=== PATIENT | male | born 1990 | race Caucasian/White ===

== ENCOUNTER 2022-09-26 06:30 | Inpatient (IN) | payer OTHER ==
[~2022-09-26] VITALS: Ht 188 cm; Wt 101.2 kg
[2022-09-26 06:35] VITALS: BP 130/86
--- NOTE | 2022-09-26 06:38 | NUR ---
TO BED AMBULATORY
[2022-09-26] MEDS ORDERED: MORPHINE SULFATE 4 MG/ML SYR IVP ONE (07:15)
[2022-09-26] MEDS ORDERED: ONDANSETRON 4 MG/2 ML VIAL IVP ONE (07:15)
[2022-09-26] MEDS ORDERED: NACL 0.9% 1,000 ML IV ONE ×2 (07:15→11:55)
[2022-09-26 07:56] LABS: ALBUMIN 4.3 g/dL (3.4-5.0); ANION GAP 13.4 (8-16); CREATININE 0.9 mg/dL (0.6-1.3); POTASSIUM 4.4 mmol/L (3.5-5.1); TOTAL BILIRUBIN 0.8 mg/dL (0.0-1.0)
[2022-09-26 08:03] LABS: BASOPHILS % (AUTO) 0.2 % (0.0-2.0); HEMATOCRIT 45.7 % (36-52); HEMOGLOBIN 15.4 g/dL (12.0-18.0); LYMPHOCYTES # (AUTO) 0.8 K/uL (2.0-11.5); LYMPHOCYTES % (AUTO) 7.2 % (20.5-51.1); MEAN CORPUSCULAR HEMOGLOBIN 31 pg (27-31); MEAN CORPUSCULAR HGB CONC 34 g/dL (33-37); MEAN CORPUSCULAR VOLUME 90.6 fL (80-94); MONOCYTES # (AUTO) 0.6 K/uL (0.8-1.0); MONOCYTES % (AUTO) 5.6 % (1.7-9.3); NEUTROPHILS # (AUTO) 9.7 K/uL (1.8-7.7); PLATELET COUNT (AUTO) 219 K/uL (140-450); RED BLOOD CELL COUNT(AUTO) 5.05 MIL/uL (4.20-6.10); RED CELL DISTRIBUTION WIDTH 12.1 % (11.6-13.7); WHITE BLOOD COUNT (AUTO) 11.1 K/uL (4.8-10.8)
[2022-09-26] MEDS ORDERED: MORPHINE SULFATE 4 MG/ML SYR IVP PRN (12:20)
[2022-09-26] MEDS ORDERED: HYDROcodone/APAP 5/325 MG 1 TAB TAB PO PRN (12:20)
[2022-09-26] MEDS ORDERED: POTASSIUM CHLORIDE 10 MEQ TABER PO PRN (12:20)
[2022-09-26] MEDS ORDERED: MAGNESIUM OXIDE 400 MG TAB PO PRN (12:20)
[2022-09-26] MEDS ORDERED: ONDANSETRON 4 MG/2 ML VIAL IVP PRN (12:20)
[2022-09-26] MEDS ORDERED: ACETAMINOPHEN 325 MG TAB PO PRN (12:20)
[2022-09-26 12:32] LABS: APPEARANCE,URINE CLEAR (CLEAR); BILIRUBIN,URINE NEGATIVE (NEGATIVE); BLOOD, URINE TRACE-I (NEGATIVE); COLOR,URINE YELLOW (YELLOW); LEUKOCYTE ESTERASE ,URINE NEGATIVE (NEGATIVE); NITRITE, URINE NEGATIVE (NEGATIVE); UGLUCOSE NEGATIVE (NEGATIVE)
--- NOTE | 2022-09-26 12:32 | NUR ---
CHARBEL SWAB COLLECTED AND HANDED TO [employer].
[2022-09-26 12:40] LABS: RBC,URINE NONE SEEN /HPF (0-5); WBC,URINE 0-5 /HPF (0-5)
[2022-09-26] MEDS ORDERED: OMEP20EC11 PO (13:22)
[2022-09-26] MEDS ORDERED: cefTRIAXone 1,000 MG VIAL ONE (13:23)
[2022-09-26] MEDS: NACL 0.9% 1,000 ML IV SCH (13:35)
--- NOTE | 2022-09-26 14:30 | NUR ---
DR. GUTIERREZ AT BEDSIDE.
--- NOTE | 2022-09-26 14:57 | NUR ---
Patient will be admitted to care of DR GUTIERREZ. Admited to Med/Surg. Will go to room 111B. Belongings list completed. Report to HERB DEVLIN.
--- NOTE | 2022-09-26 15:16 | NUR ---
MILD FEVER 101.2 TEMPORAL SCAN PER HERB DEVLIN. GIVEN NEEDED TYLENOL AND COOLING MEASURES.
--- NOTE | 2022-09-26 15:20 | NUR ---
RECEIVE REPORT FORM ER NURSE THAT PATIENT COME FROM HOME WITH ABDOMINAL PAIN WITH NAUSEA AND FEVER. ADMISSION VITAL (T-P-R: 101.2-117-20; BP:141/93, O2 SAT:98% WITH NO ACUTE PAIN), TYLENOL GIVEN FOR FEVER. PATIENT DIAGNOSIS WITH ABDOMINAL PAIN @R. UPPER QUADRANT THAT RADIATION TO BACK. ABDOMEN/PELVIS CT INDICT THAT Abdomen: 1. Normal appendix. 2. Small right lower quadrant mesenteric lymph nodes may represent mesenteric adenitis. 3. No bowel obstruction. 4. Bilateral staghorn calculi. There is no obstructive uropathy. 5. Subcentimeter hypodense lesion in the right hepatic lobe, too small to accurately characterize. Pelvis: 1. Phleboliths. 2. Tiny left inguinal hernia/canal containing fat. PATIENT HAS NO SIGNIFICANT MEDICAL HX BUT ALLERGY TO LEVOFLOXACIN, FULL CODE, AMBULATORY. PIV AT LAC 20G INFUSING NS @80ML/HR; FIRST DOSE ROCEPHIN GIVEN IN ER. NO ACUTE SKIN ISSUE. TACHYCARDIA, ON ROOM AIR. WILL CONTINUE TO MONITOR.
[2022-09-26 16:00] VITALS: BP 135/97
--- NOTE | 2022-09-26 16:16 | NUR ---
[facility] SWAB COLLECTION FROM BILATERAL NARES OF PATIENT AND PUT IN DELIVERY BOX FOR LABORATORY.
--- NOTE | 2022-09-26 18:14 | NUR ---
PATIENT PAIN IS "MUCH BETTER " PER HIS REPORT. LAI BRIZUELA PASSING DINNER TRAY.
--- NOTE | 2022-09-26 19:06 | NUR ---
HANDOFF WITH HERB ANTON.
--- NOTE | 2022-09-26 19:30 | NUR ---
RECEIVED REPORT FROM DAY SHIFT NURSE GEOFFREY FOR CONTINUITY OF CARE. PATIENT IS A&O X4. PATIENT IS ON ROOM AIR, BREATHING IS NORMAL WITH SYMMETRICAL RISE AND FALL OF CHEST. PATIENT'S IV IS A 20G LAC, RUNNING NS 80. PATIENT IS AWAKE, SITTING IN HIGH-FOWLERS POSITION, VISITING WITH FATHER (DIEGO VALDEZ, ). BED IS IN LOWEST POSITION, WHEELS LOCKED, CALL LIGHT IN PLACE. WILL CONTINUE TO OBSERVE PATIENT.
[2022-09-26 20:00] VITALS: BP 134/87
--- NOTE | 2022-09-26 21:40 | NUR ---
PATIENT REQUESTED TO HAVE HIS IV TAKEN OFF SO HE CAN USE THE BATHROOM. DISCONNECTED PATIENT FROM IV AND PATIENT AMBULATED TO THE BATHROOM WITHOUT DIFFICULTY. PATIENT AMBULATED BACK TO HIS BED INDEPENDENTLY WITHOUT DIFFICULTY WHEN HE WAS FINISHED. PATIENT STATED THAT HE HAD URINATED AND IT WAS NOT PAINFUL. HE ALSO STATED THAT IT WAS CLEAR YELLOW WITH NO SIGN OF BLOOD. I RECONNECTED PATIENT TO IV. OBTAINED PATIENT'S 2100 HEPARIN MEDICATION. ADMINISTERED HEPARIN, PATIENT TOLERATED WELL. PATIENT'S BREATHING IS NORMAL WITH SYMMETRICAL RISE AND FALL OF CHEST. WILL CONTINUE TO OBSERVE PATIENT.
--- NOTE | 2022-09-27 | NUR ---
LOOKED IN ON PATIENT. PATIENT WAS SLEEPING LYING IN HIGH-FOWLERS POSITION. BREATHING WAS NORMAL WITH SYMMETRICAL RISE AND FALL OF CHEST. WILL CONTINUE TO OBSERVE PATIENT.
[2022-09-27] MEDS: NACL 0.9% 1,000 ML IV SCH ×2 (01:47→13:18)
--- NOTE | 2022-09-27 01:52 | NUR ---
WENT INTO PATIENT'S ROOM AND HUNG NEW IV BAG. IV IS RUNNING NS AT 80. PATIENT WAS SLEEPING IN HIGH-FOWLERS POSITION. BREATHING WAS NORMAL WITH SYMMETRICAL RISE AND FALL OF CHEST. WILL CONTINUE TO OBSERVE PATIENT.
[2022-09-27 04:00] VITALS: BP 135/89
--- NOTE | 2022-09-27 04:30 | NUR ---
LOOKED IN ON PATIENT. PATIENT WAS SLEEPING, SITTING IN HIGH-FOWLERS POSITION. BREATHING WAS NORMAL WITH SYMMETRICAL RISE AND FALL OF CHEST. IV IS RUNNING NS AT 80. WILL CONTINUE TO OBSERVE PATIENT.
--- NOTE | 2022-09-27 06:00 | NUR ---
LOOKED IN ON PATIENT. PATIENT WAS AWAKE SITTING UP IN HIGH-FOWLERS POSITION. PATIENT GREETED ME CHEERFULLY BY SAYING GOOD MORNING. I ASKED PATIENT HOW HIS NIGHT WAS, HE SAID IT WAS GOOD. PATIENT HAD A URINAL TO THE SIDE OF THE BED ON HIS NIGHT STAND. EMPTIED 400 ML FROM URINAL. URINE WAS DARK MATT, BUT NO REDNESS. PATIENT'S BREATHING WAS NORMAL WITH SYMMETRICAL RISE AND FALL OF CHEST. WILL CONTINUE TO OBSERVE PATIENT.
[2022-09-27 06:31] LABS: BASOPHILS % (AUTO) 0.5 % (0.0-2.0); EOSINOPHILS % (AUTO) 0.3 % (0.0-4.0); HEMATOCRIT 43.2 % (36-52); HEMOGLOBIN 14.5 g/dL (12.0-18.0); LYMPHOCYTES # (AUTO) 1.6 K/uL (2.0-11.5); MEAN CORPUSCULAR HEMOGLOBIN 31 pg (27-31); MEAN CORPUSCULAR HGB CONC 34 g/dL (33-37); MEAN CORPUSCULAR VOLUME 91.5 fL (80-94); MONOCYTES # (AUTO) 1.2 K/uL (0.8-1.0); MONOCYTES % (AUTO) 14.6 % (1.7-9.3); NEUTROPHILS # (AUTO) 5.2 K/uL (1.8-7.7); NEUTROPHILS % (AUTO) 64.6 % (42.2-75.2); PLATELET COUNT (AUTO) 199 K/uL (140-450); RED BLOOD CELL COUNT(AUTO) 4.72 MIL/uL (4.20-6.10); RED CELL DISTRIBUTION WIDTH 12.6 % (11.6-13.7)
--- NOTE | 2022-09-27 07:05 | NUR ---
ASSUMED CONTINUITY OF CARE. NO SIGNS AND SYMPTOMS OF ACUTE DISTRESS NOTED. EXPLAINED DIAGNOSIS, PLAN OF CARE, PAIN MANAGEMENT TEACHING, USE OF CALL LIGHT/BED/TV/BATHROOM. VERBALIZED UNDERSTANDING. CALL LIGHT WITHIN REACH.
--- NOTE | 2022-09-27 07:30 | NUR ---
ENDORSED TO DAY SHIFT NURSE OSORIO FOR CONTINUITY OF CARE. PATIENT IS STABLE.
[2022-09-27 07:58] LABS: ALBUMIN 3.6 g/dL (3.4-5.0); CARBON DIOXIDE 26.9 mmol/L (21-32); CREATININE 0.8 mg/dL (0.6-1.3); MAGNESIUM 1.8 mg/dL (1.8-2.4); PHOSPHORUS 3.3 mg/dL (2.5-4.9); POTASSIUM 4.9 mmol/L (3.5-5.1); TOTAL BILIRUBIN 0.6 mg/dL (0.0-1.0)
[2022-09-27 08:00] VITALS: BP 140/83
--- NOTE | 2022-09-27 10:47 | NUR ---
WENT BATHROOM WITHOUT ASSISTANCE. TOLERATED WELL. NO C/O PAIN.
--- NOTE | 2022-09-27 11:06 | NUR ---
PATIENT HAS BEEN SCREENED AND CATEGORIZED MODERATE NUTRITION RISK. PATIENT WILL BE SEEN WITHIN 3-5 DAYS OF ADMISSION. 09/29/2212/19/[address] REVIEWED BY [address]
--- NOTE | 2022-09-27 15:57 | NUR ---
DC PLANNING JAUN MET W/ PT AT BEDSIDE TO COMPLETE ASSESSMENT. PT RESIDES IN A TWO STORY HOME WITH HIS PARENTS AT THE ADDRESS LISTED ON FILE. PT IDENTIFIED LOUIS VALDEZ, MOM, AND DIEGO VALDEZ, FATHER, EMERGENCY CONTACTS. PT DENIES AD IN PLACE AND DECLINED AD OFFERED BY SW. PT REPORTS VISITING WITH PCP NEEDED, LAST VISIT; SEP 04. PT DENIES TAKING MEDICATIONS AT THIS TIME. PT REPORTS RECEIVING MEDICATION FROM [facility] CHANG ON [address] IN [place], WHEN NEEDED. PT REPORTS BEING INDEPENDENT IN ALL ACTIVITIES AND DENIES USE OF DME. PT DENIES MH/[place] HX. PT DENIES HX OF HH, DIABETES, SNF PLACEMENT. PT REPORTS ADEQUATE FOOD IN THE HOME AND REPORTS THAT HE WORKS [employer]. PT REPORTS DC PLAN IS TO RETURN HOME W/ PARENTS PROVIDING TRANSPORTATION, WHEN MEDICALLY STABLE. Addendum: 09/27/22 at 1558 by Sherie NASCIMENTO Amended: Links added.
[2022-09-27 16:00] VITALS: BP 140/87
--- NOTE | 2022-09-27 19:05 | NUR ---
BEDSIDE REPORT TO NIGHTSHIFT NURSE. IN STABLE CONDITION. IVF INFUSING WELL.
--- NOTE | 2022-09-27 19:10 | NUR ---
RECEIVED REPORT FROM DAY NURSE. PATIENT LYING ON THE BED, IS AWAKE, ALERT AND ORIENTED X4, DENIES PAIN, FAMILY AT BEDSIDE. CALL LIGHT WITHIN REACH.
--- NOTE | 2022-09-27 20:10 | NUR ---
VITALS T 98.6, P 87, BP 135/91, RESP 18 AND O2 SATS 97% ON ROOM AIR.
--- NOTE | 2022-09-27 20:20 | NUR ---
DUE MEDICATION GIVEN ORDERED, NO ADVERSE REACTIONS NOTED, WILL CONTINUE TO MONITOR THE PATIENT.
--- NOTE | 2022-09-27 23:10 | NUR ---
PATIENT IS ASLEEP, NO SIGNS OF PAIN/DISCOMFORT NOTED, NO SIGNS OF DISTRESS NOTED. CALL LIGHT WITHIN REACH. SAFETY PRECAUTIONS IN PLACE.
--- NOTE | 2022-09-28 00:04 | NUR ---
CHECK ON PATIENT, PATIENT JUST CAME OUT OF THE RESTROOM, GAIT IS STEADY, PT IS WEARING NON SKID SOCKS. PATIENT STATED " YELLOW COLOR URINE AND NO PAIN UPON URINATION" WHEN ASKED IF HE HAS ANY PAIN UPON URINATION. BED IN LOW AND LOCKED POSITION, CALL LIGHT WITHIN REACH. WILL CONTINUE TO MONITOR THE PATIENT.
[2022-09-28] MEDS: NACL 0.9% 1,000 ML IV SCH ×2 (01:16→14:20)
[2022-09-28 04:00] VITALS: BP 127/83
--- NOTE | 2022-09-28 04:20 | NUR ---
VITALS T 97.8, P 96, BP 127/83, RESP 20 AND O2 SATS 98% ON ROOM AIR. PATIENT DENIES PAIN/DISCOMFORT UPON ASSESSMENT. WILL CONTINUE TO MONITOR THE PATIENT.
[2022-09-28 06:58] LABS: BASOPHILS % (AUTO) 0.8 % (0.0-2.0); EOSINOPHILS # (AUTO) 0.1 K/uL (0-0.4); HEMATOCRIT 41.4 % (36-52); HEMOGLOBIN 14.1 g/dL (12.0-18.0); LYMPHOCYTES % (AUTO) 37.3 % (20.5-51.1); MEAN CORPUSCULAR HEMOGLOBIN 31 pg (27-31); MEAN CORPUSCULAR HGB CONC 34 g/dL (33-37); MEAN CORPUSCULAR VOLUME 90.8 fL (80-94); MONOCYTES # (AUTO) 0.8 K/uL (0.8-1.0); NEUTROPHILS # (AUTO) 2.4 K/uL (1.8-7.7); NEUTROPHILS % (AUTO) 44.9 % (42.2-75.2); PLATELET COUNT (AUTO) 208 K/uL (140-450); RED BLOOD CELL COUNT(AUTO) 4.56 MIL/uL (4.20-6.10); RED CELL DISTRIBUTION WIDTH 12.4 % (11.6-13.7); WHITE BLOOD COUNT (AUTO) 5.3 K/uL (4.8-10.8)
--- NOTE | 2022-09-28 07:22 | NUR ---
ENDORSED PATIENT TO DAY NURSE FOR CONTINUITY OF CARE. ALL NEEDS MET THROUGHOUT THE SHIFT. PATIENT IS STABLE.
--- NOTE | 2022-09-28 07:23 | NUR ---
RECEIVED REPORT FROM [employer] CUTTER NURSE CHRISTA FOR CONTINUITY OF CARE. PT AWAKE IN BED. A&O4, ABLE TO COMMUNICATE NEEDS. RESPIRATIONS EVEN AND UNLABORED ON RA. NO DISTRESS NOTED. NO C/O OF PAIN. IV SITE ON LAC G20, INFUSING IVF. CALL LIGHT WITHIN REACH. SAFETY PRECAUTIONS IN PLACE.
[2022-09-28 08:00] VITALS: BP 133/79
[2022-09-28 08:08] LABS: ALBUMIN 3.4 g/dL (3.4-5.0); ANION GAP 14.8 (8-16); CARBON DIOXIDE 27.4 mmol/L (21-32); CREATININE 0.7 mg/dL (0.6-1.3); MAGNESIUM 1.8 mg/dL (1.8-2.4); PHOSPHORUS 4.2 mg/dL (2.5-4.9); POTASSIUM 4.2 mmol/L (3.5-5.1); TOTAL BILIRUBIN 0.4 mg/dL (0.0-1.0)
--- NOTE | 2022-09-28 08:56 | NUR ---
ADMINISTERED DUE MED. PT TEACHING ABOUT MED GIVEN. DISCUSSED POC. ANSWERED QUESTIONS. PT VERBALIZED UNDERSTANDING.
[2022-09-28] MEDS ORDERED: NITR100C7 PO (11:51)
[2022-09-28 13:12] VITALS: BP 133/79
--- NOTE | 2022-09-28 13:20 | NUR ---
HERB HALE ADMINISTERED IV ABX. NO ADVERSE REACTION NOTED.
--- NOTE | 2022-09-28 15:31 | NUR ---
DISCHARGE PAPERS DISCUSSED WITH THE PT. PT VERBALIZED UNDERSTANDING. PT GETTING READY FOR DC AND AWAITING FOR PICK-UP.
--- NOTE | 2022-09-28 16:00 | NUR ---
PT D/C HOME. PT PICKED UP BY HIS MOTHER. REMOVED IV CATHETER TIP INTACT. REMOVED ID WRIST BAND. ALL BELONGINGS TAKEN UPON DC. PT IS STABLE.
== END 2022-09-28 16:07 | disposition home or self-care (01) | DRG 465 ==
LOC: MED 06:30 → MTU 12:23
PROVIDERS: ADMIT Hospitalist; ATTEND Emergency Medicine
DX: N20.0 Calculus of kidney (principal); R65.10 Systemic inflammatory response syndrome (SIRS) of non-infectious origin without acute organ dysfunction; I88.0 Nonspecific mesenteric lymphadenitis; Z20.822 Contact with and (suspected) exposure to COVID-19; K21.9 Gastro-esophageal reflux disease without esophagitis
CPT/HCPCS: 36415; 80053; 81001; 83605; 83690; 83735; 84100; 85025; 87040; 87081; 96361; 96365; 96375; 99285; J0696; J1644; J2270; J2405; J7060; Q9967